=== PATIENT | female | born 1975 | race Caucasian/White ===

== ENCOUNTER 2018-10-31 15:34 | Emergency (ER) | payer OTHER ==
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
== END 2018-10-31 16:11 | disposition home or self-care (01) ==
LOC: VM.ED 15:34
DX: S61.257A Open bite of left little finger without damage to nail, initial encounter (principal); W50.3XXA Accidental bite by another person, initial encounter
CPT/HCPCS: 99282

== ENCOUNTER 2021-12-15 21:07 | Emergency (ER) | payer OTHER | END 2021-12-15 22:22 | disposition home or self-care (01) | LOC: VM.ED 21:07 | DX: S60.222A Contusion of left hand, initial encounter (principal); I10 Essential (primary) hypertension; W22.09XA Striking against other stationary object, initial encounter; Y99.0 Civilian activity done for income or pay | CPT/HCPCS: 99283 ==

== ENCOUNTER 2023-03-08 16:38 | Emergency (ER) | payer OTHER ==
[2023-03-08] MEDS: Albuterol/Ipratropium 3.0-0.5 MG/3 ML Neb Soln NEB ONE (16:52)
== END 2023-03-08 16:59 | disposition home or self-care (01) ==
LOC: VM.ED 16:38
DX: T59.91XA Toxic effect of unspecified gases, fumes and vapors, accidental (unintentional), initial encounter (principal); J68.0 Bronchitis and pneumonitis due to chemicals, gases, fumes and vapors; I10 Essential (primary) hypertension; E03.9 Hypothyroidism, unspecified; F17.210 Nicotine dependence, cigarettes, uncomplicated; Z88.8 Allergy status to other drugs, medicaments and biological substances; Z79.899 Other long term (current) drug therapy
CPT/HCPCS: 94640; 99284; J7620-GY